=== PATIENT | female | born 1980 | race Caucasian/White ===

== ENCOUNTER 2020-08-02 00:58 | Inpatient (IN) ==
[2020-08-02] MEDS ORDERED: 0.9 % Sodium Chloride 1,000 ML IVC ONE (01:37)
[2020-08-02] MEDS ORDERED: *HR* LORazepam 2 MG/ML VIAL IVP ONE (01:47)
[2020-08-02] MEDS ORDERED: cefTRIAXone 1,000 MG in Water for inj. (sterile) 10 ML IVP ONE (01:48)
[2020-08-02 02:06] LABS: INR 1.2; Prothrombin Time 13.5 Seconds (9.4-12.1)
[2020-08-02 02:21] LABS: Alanine Aminotransferase 45 Units/L (7-52); Albumin 3.6 g/dL (3.5-5.7); Albumin/Globulin Ratio 0.9 (1.1-2.2); Alkaline Phosphatase 90 Units/L (34-104); Aspartate Amino Transferase 38 Units/L (13-39); BUN/Creatinine Ratio 17 (6-26); Bilirubin,Direct 0.2 mg/dL (0.0-0.2); Bilirubin,Indirect 0.7 mg/dL (0.0-1.0); Bilirubin,Total 0.9 mg/dL (0.3-1.0); Blood Urea Nitrogen 13 mg/dL (6-20); Calcium 9.3 mg/dL (8.6-10.3); Carbon Dioxide 18 mEq/L (23-29); Chloride 100 mEq/L (98-107); Creatine Kinase 120 Units/L (30-223); Glucose 113 mg/dL (70-105); Osmolality,Calculated 273 (280-300); Potassium 3.5 mEq/L (3.5-5.1); Sodium 131 mEq/L (136-145); Total Protein 7.6 g/dL (6.4-8.9); Troponin I < 0.03 ng/mL (< 0.04); eGFR For African Americans > 60 (> 60); eGFR For Non-African Americans > 60 (> 60)
[2020-08-02 02:55] LABS: Basophils # 0.1 K/mcL (0.0-0.2); Basophils % 0.4 %; Eosinophils # 0.1 K/mcL (0.0-0.6); Eosinophils % 0.4 %; Hematocrit 36.3 % (35.3-44.9); Hemoglobin 11.9 g/dL (11.5-15.4); Immature Granulocytes % 0.6 % (0-4); Lymphocytes # 1.5 K/mcL (0.6-4.6); Lymphocytes % 11.2 %; Mean Corpuscular HGB Conc 32.8 g/dL (31.6-35.5); Mean Corpuscular Hemoglobin 29.2 pg (28.0-33.3); Mean Platelet Volume 10.2 fL (9.4-12.4); Monocytes % 7.9 %; Neutrophils # 10.4 K/mcL (1.6-8.9); Platelet Count 230 K/mcL (140-400); Red Blood Count 4.08 M/mcL (3.82-4.97); Red Cell Distribution Width 13.8 % (11.5-14.5); Segmented Neutrophils % 79.5 %; White Blood Count 13.1 K/mcL (4.3-11.1)
[2020-08-02] MEDS ORDERED: Naloxone 0.4 MG/ML INJ IVP PRN (04:06)
[2020-08-02] MEDS ORDERED: Ondansetron 4 MG/2 ML VIAL IVP PRN (04:06)
[2020-08-02] MEDS ORDERED: Acetaminophen 325 MG TABLET PO PRN (04:06)
[2020-08-02] MEDS: 0.9 % Sodium Chloride 1,000 ML IVC SCH ×2 (04:39→12:12)
[2020-08-02 12:08] LABS: Bacteria,Urine Few per hpf (None-Few); Bilirubin,Urine Negative (Negative); Blood,Urine Negative (Negative); Clarity,Urine Clear (Clear); Color,Urine Yellow (Yellow); Glucose,Urine (UA) Normal (Normal); Ketones,Urine Negative (Negative); Leukocyte Esterase,Urine Small (Negative); Mucus,Urine Moderate per lpf (None-Few); Nitrite,Urine Negative (Negative); Protein,Urine 50 mg/dL (Neg-Trace); RBC,Urine 0-3 per hpf (0-3); Specific Gravity,Urine > 1.030 (1.010-1.025); Squamous Epithelial Cell,Urine Few per hpf (None-Few); Urobilinogen,Urine >=8.0 mg/dL (Normal); WBC,Urine 15-30 per hpf (0-3)
[2020-08-02 12:21] LABS: Amphetamine Screen,Urine Positive ng/mL (Cutoff=1000); Barbiturate Screen,Urine Negative ng/mL (Cutoff=200); Benzodiazepines Screen,Urine Negative ng/mL (Cutoff=200); Cannabinoid Screen,Urine Positive ng/mL (Cutoff = 50); Cocaine Screen,Urine Negative ng/mL (Cutoff= 300); Opiate Screen,Urine Negative ng/mL (Cutoff=300); Phencyclidine Screen,Urine Negative ng/mL (Cutoff=25)
[2020-08-02] MEDS: cefTRIAXone 1,000 MG in Water for inj. (sterile) 10 ML IVP SCH (17:22)
[2020-08-02] MEDS: *HR* Heparin 5,000 UNIT/ML VIAL SQ SCH (17:35)
[2020-08-02] MEDS: Ketorolac 15 MG/ML VIAL IVP PRN (17:37)
[2020-08-02] MEDS ORDERED: Ketorolac 15 MG/ML VIAL IVP SCH (18:00)
[2020-08-02] MEDS: Nicotine 21 MG PATCH.TD24 TD SCH (21:25)
[2020-08-02] MEDS ORDERED: *HR* LORazepam 1 MG TABLET PO ONE (22:04)
[2020-08-03 03:20] LABS: Hematocrit 32.8 % (35.3-44.9); Hemoglobin 10.4 g/dL (11.5-15.4); Mean Corpuscular HGB Conc 31.7 g/dL (31.6-35.5); Mean Corpuscular Hemoglobin 28.8 pg (28.0-33.3); Mean Corpuscular Volume 90.9 fL (83.0-100.0); Mean Platelet Volume 10.3 fL (9.4-12.4); Platelet Count 183 K/mcL (140-400); Red Blood Count 3.61 M/mcL (3.82-4.97); Red Cell Distribution Width 13.9 % (11.5-14.5); White Blood Count 8.5 K/mcL (4.3-11.1)
[2020-08-03 03:41] LABS: Blood Urea Nitrogen 12 mg/dL (6-20); Calcium 8.8 mg/dL (8.6-10.3); Carbon Dioxide 23 mEq/L (23-29); Chloride 103 mEq/L (98-107); Glucose 111 mg/dL (70-105); Osmolality,Calculated 276 (280-300); Potassium 3.7 mEq/L (3.5-5.1); Sodium 133 mEq/L (136-145)
[2020-08-03 04:31] LABS: BUN/Creatinine Ratio 18 (6-26); eGFR For African Americans > 60 (> 60); eGFR For Non-African Americans > 60 (> 60)
[2020-08-03] MEDS: *HR* Heparin 5,000 UNIT/ML VIAL SQ SCH ×2 (05:28→17:03)
[2020-08-03] MEDS: Ketorolac 15 MG/ML VIAL IVP PRN ×2 (05:36→19:43)
[2020-08-03] MEDS: Nicotine 21 MG PATCH.TD24 TD SCH (08:27)
[2020-08-03] MEDS ORDERED: Ibuprofen 800 MG TABLET PO PRN (10:07)
[2020-08-03] MEDS ORDERED: cloNIDine HCL 0.1 MG TABLET PO SCH (10:15)
[2020-08-03] MEDS: *HR* LORazepam 1 MG TABLET PO SCH ×2 (10:23→19:43)
[2020-08-03] MEDS: Acetaminophen IV 1,000 MG/100 ML BAG IVPB SCH ×2 (12:14→17:09)
[2020-08-03] MEDS ORDERED: Sulfamethoxazole/Trimeth DS 1 EACH TABLET PO SCH (13:00)
[2020-08-03] MEDS ORDERED: cloNIDine HCL 0.1 MG TABLET PO PRN (14:00)
[2020-08-03] MEDS: cefTRIAXone 1,000 MG in Water for inj. (sterile) 10 ML IVP SCH (17:07)
[2020-08-03] MEDS: Sulfamethoxazole/Trimeth DS 1 EACH TABLET PO SCH (19:46)
[2020-08-04] MEDS: Acetaminophen IV 1,000 MG/100 ML BAG IVPB SCH ×3 (00:06→11:35)
[2020-08-04] MEDS: *HR* Heparin 5,000 UNIT/ML VIAL SQ SCH ×2 (05:29→16:57)
[2020-08-04 06:23] LABS: Hematocrit 32.8 % (35.3-44.9); Hemoglobin 10.5 g/dL (11.5-15.4); Mean Corpuscular Hemoglobin 28.8 pg (28.0-33.3); Mean Corpuscular Volume 89.9 fL (83.0-100.0); Mean Platelet Volume 10.4 fL (9.4-12.4); Platelet Count 180 K/mcL (140-400); Red Blood Count 3.65 M/mcL (3.82-4.97); Red Cell Distribution Width 13.7 % (11.5-14.5); White Blood Count 9.4 K/mcL (4.3-11.1)
[2020-08-04 06:46] LABS: BUN/Creatinine Ratio 20 (6-26); Blood Urea Nitrogen 12 mg/dL (6-20); Carbon Dioxide 20 mEq/L (23-29); Chloride 106 mEq/L (98-107); Glucose 87 mg/dL (70-105); Osmolality,Calculated 281 (280-300); Potassium 3.8 mEq/L (3.5-5.1); Sodium 136 mEq/L (136-145); eGFR For African Americans > 60 (> 60); eGFR For Non-African Americans > 60 (> 60)
[2020-08-04] MEDS: Ketorolac 15 MG/ML VIAL IVP PRN ×2 (08:29→21:31)
[2020-08-04] MEDS: *HR* LORazepam 1 MG TABLET PO SCH ×2 (09:14→21:30)
[2020-08-04] MEDS: Sulfamethoxazole/Trimeth DS 1 EACH TABLET PO SCH ×2 (09:14→21:30)
[2020-08-04] MEDS: Nicotine 21 MG PATCH.TD24 TD SCH (09:17)
[2020-08-04] MEDS: cefTRIAXone 1,000 MG in Water for inj. (sterile) 10 ML IVP SCH (16:56)
[2020-08-05] MEDS: *HR* Heparin 5,000 UNIT/ML VIAL SQ SCH ×2 (06:21→18:23)
[2020-08-05 06:34] LABS: Hemoglobin 10.6 g/dL (11.5-15.4); Mean Corpuscular HGB Conc 32.1 g/dL (31.6-35.5); Mean Corpuscular Hemoglobin 29.1 pg (28.0-33.3); Mean Corpuscular Volume 90.7 fL (83.0-100.0); Mean Platelet Volume 10.7 fL (9.4-12.4); Platelet Count 245 K/mcL (140-400); Red Blood Count 3.64 M/mcL (3.82-4.97); Red Cell Distribution Width 13.9 % (11.5-14.5); White Blood Count 8.1 K/mcL (4.3-11.1)
[2020-08-05] MEDS: Nicotine 21 MG PATCH.TD24 TD SCH (09:34)
[2020-08-05] MEDS: Sulfamethoxazole/Trimeth DS 1 EACH TABLET PO SCH ×2 (09:34→20:51)
[2020-08-05] MEDS: *HR* LORazepam 1 MG TABLET PO SCH ×2 (09:35→20:51)
[2020-08-05] MEDS: cefTRIAXone 1,000 MG in Water for inj. (sterile) 10 ML IVP SCH (18:22)
[2020-08-06 03:07] VITALS: BP 109/74
[2020-08-06] MEDS: *HR* Heparin 5,000 UNIT/ML VIAL SQ SCH (06:16)
[2020-08-06] MEDS: Sulfamethoxazole/Trimeth DS 1 EACH TABLET PO SCH (09:50)
[2020-08-06] MEDS: *HR* LORazepam 1 MG TABLET PO SCH (09:50)
[2020-08-06] MEDS: Nicotine 21 MG PATCH.TD24 TD SCH (09:52)
== END 2020-08-06 14:30 | disposition home or self-care (01) | DRG 720 ==
LOC: EMEROOARM 00:58 → 3ANU 00:58 → SUATTDRO 03:34 → 3ANU 04:02
PROVIDERS: ADMIT Internal Medicine; ATTEND Internal Medicine